=== PATIENT | male | born 1980 | race Caucasian/White ===

== ENCOUNTER 2020-06-30 05:04 | Inpatient (IN) | payer MEDICARE, OTHER ==
[~2020-06-30] VITALS: Ht 180.3 cm; Wt 96.2 kg
[2020-06-30 08:05] LABS: HEMOGLOBIN 11.9 gm/dl (14.0-17.5); RED BLOOD COUNT 3.98 M/UL (4.20-5.50)
[2020-06-30] MEDS ORDERED: CLONIDINE HCL0.2 MG PO ×2 (16:21→16:32)
[2020-06-30] MEDS ORDERED: WARFARIN SODIUM2 MG PO ×2 (16:22→17:07)
[2020-06-30] MEDS ORDERED: HYDROCODON-ACE1 EAC2 PO (16:31)
[2020-06-30] MEDS ORDERED: LIPITOR40 MG PO (16:31)
[2020-06-30] MEDS ORDERED: NORVASC10 MG PO (16:31)
[2020-06-30] MEDS ORDERED: COREG25 MG PO (16:31)
--- NOTE | 2020-06-30 16:31 | NUR ---
PATIENT IS UNABLE TO GIVE ANY INFORMATION ON WHAT SORT OF MEDICINES HE TAKES AT HOME. WHAT I RECIEVED FROM THE PHARMACY PATIENT GOES TO, I WAS UNABLE TO COMPLETE MED LIST ACCURATELY. I CALLED PHARMACY FOR HELP AND THEY ARE WORKING ON CREATING A "DISPENSING MED LIST". I HAVE ALSO CALLED HOSPITALIST DR. BEARDEN AND INFORMED HER WELL.
[2020-06-30] MEDS ORDERED: LASIX80 MG PO (16:32)
[2020-06-30] MEDS ORDERED: FERROUS SULFAT325 M2 PO (16:32)
[2020-06-30] MEDS ORDERED: HYDRALAZINE HCL50 MG PO (16:43)
[2020-06-30] MEDS ORDERED: AVAPRO150 MG PO (17:05)
[2020-06-30] MEDS ORDERED: NOVOLOG FL100 UNIT/1 INJ (17:06)
[2020-06-30] MEDS ORDERED: LANTUS SOL100 UNIT/1 SQ (17:06)
[2020-06-30] MEDS ORDERED: SODIUM BICARBO650 M1 PO (17:06)
[2020-06-30] MEDS ORDERED: LOPRESSOR 25 MG25 MG PO (17:06)
[2020-06-30] MEDS ORDERED: FLOMAX 0.4 MG0.4 MG PO (17:07)
[2020-06-30 20:42] LABS: ACINETOBACTER BAUMANNII Not Detected (Negative); CANDIDA ALBICANS Not Detected (Negative); CANDIDA KRUSEI Not Detected (Negative); CANDIDA TROPICALIS Not Detected (Negative); ENTEROCOCCUS Not Detected (Negative); ESCHERICHIA COLI Not Detected (Negative); HAEMOPHILUS INFLUENZAE Not Detected (Negative); KLEBSIELLA OXYTOCA Not Detected (Negative); KLEBSIELLA PNEUMONIAE Not Detected (Negative); KPC-CARBAPENEM-RESISTANCE GENE Not Detected (Negative); PROTEUS Not Detected (Negative); PSEUDOMONAS AERUGINOSA Not Detected (Negative); SERRATIA MARCESANS Not Detected (Negative); STREP AGALACTIAE (GROUP B) Not Detected (Negative); STREP PYOGENES (GROUP A) Not Detected (Negative); STREPTOCOCCUS Not Detected (Negative); mecA (METHICILLIN RESIST GENE Not Detected (Negative); vanA/B (VANCOMYCIN RESIST GENE Not Detected (Negative)
[2020-06-30 22:23] LABS: STAPHYLOCOCCUS DETECTED (Negative); STAPHYLOCOCCUS AUREUS DETECTED (Negative)
[2020-07-01 02:55] LABS: HEMOGLOBIN 10.7 gm/dl (14.0-17.5); RED BLOOD COUNT 3.59 M/UL (4.20-5.50); WHITE BLOOD COUNT 8.1 K/UL (4.5-11.0)
[2020-07-02 03:28] LABS: HEMOGLOBIN 10.6 gm/dl (14.0-17.5); RED BLOOD COUNT 3.64 M/UL (4.20-5.50)
[2020-07-02 03:31] LABS: WHITE BLOOD COUNT 11.4 K/UL (4.5-11.0)
[2020-07-02 10:08] LABS: HBSAG SCREEN Negative (Negative); HEP B CORE AB, TOT Negative (Negative); HEP C VIRUS AB <0.1 (0.0-0.9)
[2020-07-03 03:33] LABS: HEMOGLOBIN 10.9 gm/dl (14.0-17.5); RED BLOOD COUNT 3.63 M/UL (4.20-5.50)
[2020-07-03 03:34] LABS: WHITE BLOOD COUNT 8.2 K/UL (4.5-11.0)
[2020-07-03 08:14] LABS: HBSAG SCREEN Negative (Negative); HEP A AB, IGM Negative (Negative); HEP B CORE AB, IGM Negative (Negative); HEP C VIRUS AB <0.1 (0.0-0.9)
--- NOTE | 2020-07-04 18:35 | NUR ---
MAGO RN AND MYSELF ATTEMPTED TO PULL DIALYSIS CATH IN [place] PER DR. LUA. WHEN ATTEMPTED TO DO SO RESISTANCE WAS MET. DR. LUA STILL ON FLOOR AND WAS PULLED TO ROOM TO ASSESS SITE OF CATH. UPON ASSESSMENT IT WAS DETERMINED THAT CATH WAS NOT A TEMPORARY CATH BUT WAS A TUNNELLED CATH. CHANELL ORDERS TO CALL DR. SHEPPARD AND INFORM HER OF HER NEED TO PULL CATH. NOTIFIED. WILL CONTINUE TO MONITOR
[2020-07-07 03:08] LABS: HEMOGLOBIN 10.6 gm/dl (14.0-17.5); RED BLOOD COUNT 3.55 M/UL (4.20-5.50); WHITE BLOOD COUNT 7.9 K/UL (4.5-11.0)
[2020-07-08 02:46] LABS: HEMOGLOBIN 10.1 gm/dl (14.0-17.5); RED BLOOD COUNT 3.44 M/UL (4.20-5.50); WHITE BLOOD COUNT 8.2 K/UL (4.5-11.0)
[2020-07-09 07:16] LABS: RED BLOOD COUNT 3.38 M/UL (4.20-5.50); WHITE BLOOD COUNT 8.2 K/UL (4.5-11.0)
[2020-07-10 02:49] LABS: HEMOGLOBIN 9.7 gm/dl (14.0-17.5); RED BLOOD COUNT 3.25 M/UL (4.20-5.50); WHITE BLOOD COUNT 7.3 K/UL (4.5-11.0)
--- NOTE | 2020-07-10 14:16 | NUR ---
PER DR WALTERS, MAKE SURE PATIENT IS SET UP WITH DIALYSIS APPOINTMENTS IN [facility], CLOSER TO HIS HOME
[2020-07-11 02:29] LABS: HEMOGLOBIN 9.2 gm/dl (14.0-17.5); RED BLOOD COUNT 3.08 M/UL (4.20-5.50); WHITE BLOOD COUNT 6.8 K/UL (4.5-11.0)
[2020-07-13] MEDS ORDERED: OXACILLIN IV (09:48)
[2020-07-13] MEDS ORDERED: HYDROCODON-ACE1 EAC2 PO (11:04)
--- NOTE | 2020-07-13 12:51 | NUR ---
WAS INFORMED BY STRATEGIC DEBRIEFING SPECIALIST PATIENT DIALYSIS CATHETER NOT WORKING AND THAT DR. SHEPPARD WAS NOTIFIED. I NOTIFIED DR. KO AND RECEIVED ORDER TO CANCEL PATIENT'S DISCHARGE.
--- NOTE | 2020-07-13 13:25 | NUR ---
RECEIVED ORDER TO DISCHARGE PATIENT REGARDLESS OF PATIENT'S DIALYSIS CATHETER NOT WORKING WELL. DR. WALTERS AND DR. SHEPPARD AWARE OF THE ABOVE. THIS INFORMATION COMES FROM DIALYSIS NURSE. NOTIFIED DR. KO
--- NOTE | 2020-07-13 13:33 | NUR ---
RECEIVED ORDER FROM DR. CRUZ RASMUSSEN TO DISCHARGE PATIENT WITH HIS MOTHER FOR TRANSPORT
--- NOTE | 2020-07-13 14:32 | NUR ---
PATIENT BACK FROM DIALYSIS
--- NOTE | 2020-07-13 17:33 | NUR ---
PATIENT REFIUSED TO RESTART A NEW IV SITE. UNABLE TO GIVE IV ANTIBIOTICS
== END 2020-07-13 19:00 | DRG 291 ==
LOC: PROG CARE 06:27 → MED SURG 4 06:27 → PROG CARE 06:38 → MED SURG 4 07-12 19:23
PROVIDERS: Internal Medicine; Internal Medicine Nephrology; ADMIT Family Medicine
PROC: B24BZZ4 Ultrasonography of Heart with Aorta, Transesophageal (ICD-10-PCS; principal; 2020-06-30)
PROC: 0JH63XZ Insertion of Tunneled Vascular Access Device into Chest Subcutaneous Tissue and Fascia, Percutaneous Approach (ICD-10-PCS; 2020-07-09)
PROC: 02HV33Z Insertion of Infusion Device into Superior Vena Cava, Percutaneous Approach (ICD-10-PCS; 2020-07-09)
PROC: 5A1D70Z Performance of Urinary Filtration, Intermittent, Less than 6 Hours Per Day (ICD-10-PCS; 2020-07-13)
DX: I13.2 Hypertensive heart and chronic kidney disease with heart failure and with stage 5 chronic kidney disease, or end stage renal disease (principal); I50.33 Acute on chronic diastolic (congestive) heart failure; G93.41 Metabolic encephalopathy; J96.01 Acute respiratory failure with hypoxia; E87.1 Hypo-osmolality and hyponatremia; E87.2 Acidosis; F11.20 Opioid dependence, uncomplicated; Z20.822 Contact with and (suspected) exposure to COVID-19; D69.6 Thrombocytopenia, unspecified; F17.210 Nicotine dependence, cigarettes, uncomplicated; K21.9 Gastro-esophageal reflux disease without esophagitis; E78.5 Hyperlipidemia, unspecified; G89.29 Other chronic pain; B19.20 Unspecified viral hepatitis C without hepatic coma; B95.61 Methicillin susceptible Staphylococcus aureus infection as the cause of diseases classified elsewhere; E87.6 Hypokalemia; D63.1 Anemia in chronic kidney disease; E11.22 Type 2 diabetes mellitus with diabetic chronic kidney disease; N40.0 Benign prostatic hyperplasia without lower urinary tract symptoms; Z91.15 Patient's noncompliance with renal dialysis; Z79.4 Long term (current) use of insulin; Z86.73 Personal history of transient ischemic attack (TIA), and cerebral infarction without residual deficits; Z79.01 Long term (current) use of anticoagulants
CPT/HCPCS: ECHO; 0240U; 36415; 71045; 72072; 72100; 72146; 72148; 76000; 80048; 80053; 80074; 80202; 82140; 82550; 82553; 82803; 82962; 83605; 83735; 83970; 84100; 84439; 84484; 85025; 85027; 85610; 86140; 86704; 86706; 86708; 86803; 87040; 87070; 87077; 87150; 87186; 87340; 90935; 90937; 92610; 93005; 93306; 94760; 97116-GP-CQ; 97161; 97166; 97530-GP-CQ; C1750; C1752; J1100; J1610; J1642; J2001; J2185; J2405; J2700; J2704; J2997; J3370; J7070; J7120; U0002

== ENCOUNTER 2021-05-13 21:39 | Inpatient (IN) | payer MEDICARE, OTHER ==
[~2021-05-13] VITALS: Ht 180.3 cm; Wt 90.4 kg
[~2021-05-13 21:39] MED LIST: AVAPRO150 MG PO; CLONIDINE HCL0.2 MG PO; COREG25 MG PO; FERROUS SULFAT325 M2 PO; FLOMAX 0.4 MG0.4 MG PO; HYDRALAZINE HCL50 MG PO; HYDROCODON-ACE1 EAC2 PO; LIPITOR40 MG PO; LOPRESSOR 25 MG25 MG PO; NORVASC10 MG PO; OXACILLIN IV; SODIUM BICARBO650 M1 PO; WARFARIN SODIUM2 MG PO
[2021-05-14] MEDS ORDERED: LASIX80 MG PO (16:32)
[2021-05-14 17:04] LABS: HEMOGLOBIN 8.4 gm/dl (14.0-17.5); RED BLOOD COUNT 2.85 M/UL (4.20-5.50); WHITE BLOOD COUNT 19.6 K/UL (4.5-11.0)
[2021-05-14] MEDS ORDERED: WARFARIN SODIUM4 MG PO (17:07)
[2021-05-14] MEDS ORDERED: BUPROPION XL150 MG PO (18:57)
[2021-05-14] MEDS ORDERED: RENVELA800 MG PO (19:00)
[2021-05-14] MEDS ORDERED: PROTONIX40 MG PO (19:08)
[2021-05-15 08:17] LABS: HEMOGLOBIN 8.2 gm/dl (14.0-17.5); RED BLOOD COUNT 2.77 M/UL (4.20-5.50); WHITE BLOOD COUNT 19.4 K/UL (4.5-11.0)
[2021-05-15 10:43] LABS: BUN/CREATININE RATIO 11 (0-10)
[2021-05-15] MEDS ORDERED: LANTUS SOL100 UNIT/1 SQ ×2 (16:48→17:06)
[2021-05-15] MEDS ORDERED: NOVOLOG FL100 UNIT/1 SQ (17:06)
[2021-05-16 03:57] LABS: HEMOGLOBIN 8.8 gm/dl (14.0-17.5); WHITE BLOOD COUNT 12.1 K/UL (4.5-11.0)
[2021-05-16 12:17] LABS: HBSAG SCREEN Negative (Negative); HEP A AB, IGM Negative (Negative); HEP B CORE AB, IGM Negative (Negative); HEP C VIRUS AB <0.1 (0.0-0.9)
[2021-05-17 04:17] LABS: RED BLOOD COUNT 2.73 M/UL (4.20-5.50)
[2021-05-18 03:10] LABS: HEMOGLOBIN 8.2 gm/dl (14.0-17.5); RED BLOOD COUNT 2.79 M/UL (4.20-5.50)
[2021-05-18 03:12] LABS: WHITE BLOOD COUNT 11.1 K/UL (4.5-11.0)
[2021-05-19 02:22] LABS: RED BLOOD COUNT 2.68 M/UL (4.20-5.50); WHITE BLOOD COUNT 10.2 K/UL (4.5-11.0)
[2021-05-20 03:13] LABS: HEMOGLOBIN 7.3 gm/dl (14.0-17.5); RED BLOOD COUNT 2.5 M/UL (4.20-5.50); WHITE BLOOD COUNT 13.3 K/UL (4.5-11.0)
--- NOTE | 2021-05-20 03:40 | NUR ---
NOTIFIED DR BOO OF [facility]. STATES IF PATIENT IS GETTING DIAYLSIS TODAY HE SHOULD BE FINE. WILL CONTINUE TO MONITOR PT.
[2021-05-21 02:09] LABS: HEMOGLOBIN 7.8 gm/dl (14.0-17.5); RED BLOOD COUNT 2.61 M/UL (4.20-5.50); WHITE BLOOD COUNT 13.9 K/UL (4.5-11.0)
[2021-05-22 03:08] LABS: HEMOGLOBIN 7.4 gm/dl (14.0-17.5); RED BLOOD COUNT 2.5 M/UL (4.20-5.50)
[2021-05-22 03:23] LABS: WHITE BLOOD COUNT 19.6 K/UL (4.5-11.0)
[2021-05-23 02:58] LABS: HEMOGLOBIN 7.5 gm/dl (14.0-17.5); RED BLOOD COUNT 2.52 M/UL (4.20-5.50); WHITE BLOOD COUNT 15.1 K/UL (4.5-11.0)
[2021-05-23 12:14] LABS: HBSAG SCREEN Negative (Negative); HEP A AB, IGM Negative (Negative); HEP B CORE AB, IGM Negative (Negative); HEP C VIRUS AB <0.1 (0.0-0.9)
[2021-05-24 03:28] LABS: HEMOGLOBIN 7.6 gm/dl (14.0-17.5); RED BLOOD COUNT 2.56 M/UL (4.20-5.50); WHITE BLOOD COUNT 15.2 K/UL (4.5-11.0)
[2021-05-25 05:10] LABS: HEMOGLOBIN 7.3 gm/dl (14.0-17.5); RED BLOOD COUNT 2.42 M/UL (4.20-5.50); WHITE BLOOD COUNT 12.7 K/UL (4.5-11.0)
[2021-05-25] MEDS ORDERED: ATORVASTATIN CA20 MG PO (09:43)
[2021-05-25] MEDS ORDERED: CARVEDILOL25 MG PO (09:43)
[2021-05-25] MEDS ORDERED: VANCOMYCIN500 MG/101 IV (09:46)
[2021-05-25] MEDS ORDERED: ERTAPENEM1 GM IM (09:46)
[2021-05-25] MEDS ORDERED: ERTAPENEM1 GM INJ (09:52)
== END 2021-05-25 20:33 | DRG 853 ==
LOC: PROG CARE 21:39 → M/S 05-21 16:08
PROVIDERS: Internal Medicine; Internal Medicine Nephrology; Surgery; ADMIT Internal Medicine
PROC: 8E0ZXY6 Isolation (ICD-10-PCS; 2021-05-14)
PROC: 0Y6H0Z3 Detachment at Right Lower Leg, Low, Open Approach (ICD-10-PCS; 2021-05-15)
PROC: 3E0333Z Introduction of Anti-inflammatory into Peripheral Vein, Percutaneous Approach (ICD-10-PCS; 2021-05-16)
PROC: 5A1D70Z Performance of Urinary Filtration, Intermittent, Less than 6 Hours Per Day (ICD-10-PCS; 2021-05-16)
PROC: 0QBG0ZZ Excision of Right Tibia, Open Approach (ICD-10-PCS; principal; 2021-05-17 08:45)
PROC: 5A1D70Z Performance of Urinary Filtration, Intermittent, Less than 6 Hours Per Day (ICD-10-PCS; 2021-05-18)
PROC: 5A1D70Z Performance of Urinary Filtration, Intermittent, Less than 6 Hours Per Day (ICD-10-PCS; 2021-05-20)
PROC: 5A1D70Z Performance of Urinary Filtration, Intermittent, Less than 6 Hours Per Day (ICD-10-PCS; 2021-05-22)
DX: A41.9 Sepsis, unspecified organism (principal); N18.6 End stage renal disease; U07.1 COVID-19; J96.01 Acute respiratory failure with hypoxia; J12.82 Pneumonia due to coronavirus disease 2019; M86.8X7 Other osteomyelitis, ankle and foot; I12.0 Hypertensive chronic kidney disease with stage 5 chronic kidney disease or end stage renal disease; E11.52 Type 2 diabetes mellitus with diabetic peripheral angiopathy with gangrene; I50.32 Chronic diastolic (congestive) heart failure; F11.20 Opioid dependence, uncomplicated; E87.1 Hypo-osmolality and hyponatremia; Z68.29 Body mass index [BMI] 29.0-29.9, adult; R65.20 Severe sepsis without septic shock; E66.01 Morbid (severe) obesity due to excess calories; D69.6 Thrombocytopenia, unspecified; E87.5 Hyperkalemia; L89.521 Pressure ulcer of left ankle, stage 1; E78.5 Hyperlipidemia, unspecified; E11.21 Type 2 diabetes mellitus with diabetic nephropathy; E83.39 Other disorders of phosphorus metabolism; E11.22 Type 2 diabetes mellitus with diabetic chronic kidney disease; F17.210 Nicotine dependence, cigarettes, uncomplicated; E88.09 Other disorders of plasma-protein metabolism, not elsewhere classified; E11.69 Type 2 diabetes mellitus with other specified complication; D63.1 Anemia in chronic kidney disease; Z79.4 Long term (current) use of insulin; Z86.73 Personal history of transient ischemic attack (TIA), and cerebral infarction without residual deficits; Z91.15 Patient's noncompliance with renal dialysis
CPT/HCPCS: 36415; 71045; 80048; 80053; 80074; 80202; 82009; 82550; 82607; 82962; 83540; 83550; 83605; 83735; 83880; 84100; 85025; 85027; 85610; 85652; 86140; 86850; 86900; 86901; 87040; 90937; 93005; 93926; 94640; 94664; 94760; 97110; 97110-GP-CQ; 97162; 97166; 97530; J0696; J1100; J1170; J1335; J1650; J2185; J2250; J2270; J2405; J2704; J2997; J3010; J3370; J7030; J7070; J7120; P9047; Q4081